=== PATIENT | male | born 1950 | race Caucasian/White ===

== ENCOUNTER 2016-12-09 16:14 | Emergency (ER) | payer OTHER ==
[~2016-12-09] VITALS: Ht 185.4 cm; Wt 108.6 kg
[2016-12-09 16:15] VITALS: Ht 185.4 cm; Wt 108.6 kg
[2016-12-09] MEDS ORDERED: ONDANSETRON INJ 2 MG/ML 2 ML VIAL IV STA (16:27)
[2016-12-09] MEDS ORDERED: ALLO100T PO (16:35)
[2016-12-09] MEDS ORDERED: TAMS0.4C38 PO (16:36)
[2016-12-09] MEDS ORDERED: FINA1TAB36 PO (16:37)
[2016-12-09] MEDS ORDERED: FURO-85 PO (16:38)
[2016-12-09] MEDS ORDERED: ASPI325T39 PO (16:39)
[2016-12-09 16:41] LABS: URINE APPEARANCE CLEAR (CLEAR); URINE BILIRUBIN NEG (NEG); URINE COLOR YELLOW; URINE NITRITE NEG (NEG); URINE PH 6.5 (4.5-7.5); URINE SPECIFIC GRAVITY 1.017 (1.000-1.030); UROBILINOGEN NEG (NEG)
[2016-12-09 16:42] LABS: BASO % 0.2 %; BASO ABS # 0.01 K/uL (0-0.2); COMPLETE YES; EOS % 1.8 %; HEMATOCRIT 43.3 % (42-52); IG% 0.2 %; LYMPH % 36.9 %; MEAN CELL VOLUME 94.5 fL (80-100); MEAN CORPUSCULAR HEMOGLOBIN 31.9 pg (25-34); MEAN CORPUSCULAR HGB CONC 33.7 g/dl (32-36); MEAN PLATELET VOLUME 9.9 fL (7.4-10.4); MONO % 11.1 %; NEUT % 49.8 %; PLATELET COUNT 203 K/uL (130-400); RED BLOOD COUNT 4.58 M/uL (4.7-6.1); WHITE BLOOD COUNT 6.24 K/uL (4.8-10.8)
[2016-12-09 16:45] LABS: MANUAL MICROSCOPIC REQUIRED? NO; REVIEW REQ? NO
[2016-12-09 17:01] LABS: BUN/CREATININE RATIO 14.6 (10-20); CALCIUM 9.1 mg/dl (8.5-10.1); CREATININE 1.2 mg/dl (0.60-1.40); POTASSIUM 4.1 mmol/L (3.5-5.1)
[2016-12-09] MEDS ORDERED: OPTIRAY 320 IV PRN (19:30)
--- NOTE | 2016-12-09 19:39 | DIAGNOSTIC IMAGING REPORT ---
CT OF THE ABDOMEN AND PELVIS WITH CONTRAST CLINICAL HISTORY: Lower abdominal pain. Evaluate for acute diverticulitis. COMPARISON STUDY: None. TECHNIQUE: Following IV administration of 116 mL of Optiray-320, axial images of the abdomen and pelvis were obtained from the lung bases to the proximal femurs. Images were reviewed in the axial, sagittal, and coronal planes. IV contrast was administered without complication. Oral contrast was administered. CT DOSE: 1057.54 mGy.cm FINDINGS: The liver, spleen, adrenal glands, kidneys and pancreas are unremarkable. There is a diverticulum of the second portion of the duodenum. There is no biliary or pancreatic ductal dilatation. The caliber and wall thickness of small and large bowel are normal. The appendix is normal. There is extensive sigmoid diverticulosis without evidence for acute diverticulitis. No pneumatosis, free air or portal venous gas is present. No suspicious skeletal lesions are identified. There is no lymphadenopathy or ascites. IMPRESSION: 1. No acute process within the abdomen or pelvis. 2. Extensive sigmoid diverticulosis without evidence of acute diverticulitis. 3. Normal appendix. No bowel obstruction. Electronically signed by: Vinicio Plascencia M.D. 12/09/2016 7:37 PM Dictated Date/Time: 12/09/2016 7:31 PM
--- NOTE | 2016-12-09 19:47 | EMERGENCY ROOM VISIT NOTE ---
History Report prepared by Santino: Kay Nugent Under the Supervision of: Dr. Juan Pablo Fierro M.D. First contact with patient: 16:19 Chief Complaint: ABDOMINAL PAIN Stated Complaint: ABDOMINAL PAIN- [facility] REFERRED Nursing Triage Summary: Pt c/o mid lower abdominal pain that began was intermittent, now is constant. Denies n/v/d. Denies urinary symptoms. Last BM this am. History of Present Illness The patient is a 66 year old male who presents to the Emergency Room with complaints of constant sharp mid lower abdominal pain beginning 3 days ago. The patient states that he was seen at [facility] and was referred here. He reports that his last bowel movement was this morning and it was normal. He denies any urinary symptoms, hematuria, fever, nausea, vomiting, diarrhea, bloody stool, and black stool. The patient reports that he has no history of abdominal surgeries. Source of History: patient Onset: 3 days ago Position: abdomen (lower central) Quality: sharp Timing: constant Associated Symptoms: No fevers, No nausea, No vomiting, No diarrhea, No urinary symptoms Note: He denies any bloody stool and black stool. Review of Systems See HPI for pertinent positives & negatives. A total of 10 systems reviewed and were otherwise negative. Past Medical & Surgical Medical Problems: (1) Asthma (2) HTN (hypertension) Family History Patient reports no known family medical history. Social History Smoking Status: Never Smoker Smokeless Tobacco Use: No Alcohol Use: occasionally Occupation Status: employed Current/Historical Medications Scheduled Allopurinol (Zyloprim), 1 TAB PO DAILY Aspirin (Aspirin Ec), 650 MG PO DAILY Finasteride (Alopecia) (Finasteride), 1 TAB PO DAILY Furosemide (Lasix), 1 TAB PO DAILY Tamsulosin Hcl (Flomax), 0.4 MG PO QPM Allergies Coded Allergies: Eggs or Egg-derived Products (Verified Allergy, Intermediate, NAUSEA/ RASH , 12/09/16) Shellfish (Verified Allergy, Intermediate, RASH, 12/09/16) Physical Exam Vital Signs Date Time Temp Pulse Resp B/P (MAP) Pulse Ox O2 Delivery O2 Flow Rate FiO2 12/09/16 18:32 59 16 121/86 93 Room Air 12/09/16 16:15 36.7 65 18 129/88 96 Room Air Physical Exam Constitutional: Vital signs reviewed. Eyes: Pupils are equal round reactive to light. Conjunctiva are noninjected. ENT: Pharynx is clear without erythema or exudate. Mucous membranes are moist. Neck supple without meningeal signs. Respiratory: Clear to auscultation bilaterally. Breath sounds are equal bilaterally. Cardiovascular: Regular rate and rhythm. No rubs or gallops. GI: Soft, suprapubic tenderness, no guarding. Bowel sounds are present. Musculoskeletal: No peripheral edema. No lower extremity tenderness. Integumentary: No cyanosis. Neurological: The patient is awake and alert. No focal deficits. Psychiatric: Normal affect. Medical Decision & Procedures ER Provider Diagnostic Interpretation: CT results as stated below per my review and radiologist interpretation. CT OF THE ABDOMEN AND PELVIS WITH CONTRAST TECHNIQUE: Following IV administration of 116 mL of Optiray-320, axial images of the abdomen and pelvis were obtained from the lung bases to the proximal femurs. Images were reviewed in the axial, sagittal, and coronal planes. IV contrast was administered without complication. Oral contrast was administered. CT DOSE: 1057.54 mGy.cm FINDINGS: The liver, spleen, adrenal glands, kidneys and pancreas are unremarkable. There is a diverticulum of the second portion of the duodenum. There is no biliary or pancreatic ductal dilatation. The caliber and wall thickness of small and large bowel are normal. The appendix is normal. There is extensive sigmoid diverticulosis without evidence for acute diverticulitis. No pneumatosis, free air or portal venous gas is present. No suspicious skeletal lesions are identified. There is no lymphadenopathy or ascites. IMPRESSION: 1. No acute process within the abdomen or pelvis. 2. Extensive sigmoid diverticulosis without evidence of acute diverticulitis. 3. Normal appendix. No bowel obstruction. Electronically signed by: Vinicio Plascencia M.D. 12/09/2016 7:37 PM Dictated Date/Time: 12/09/2016 7:31 PM Laboratory Results 12/09/16 16:30 Red Blood Count 4.58, Mean Corpuscular Volume 94.5, Mean Corpuscular Hemoglobin 31.9, Mean Corpuscular Hemoglobin Concent 33.7, Mean Platelet Volume 9.9, Neutrophils (%) (Auto) 49.8, Lymphocytes (%) (Auto) 36.9, Monocytes (%) (Auto) 11.1, Eosinophils (%) (Auto) 1.8, Basophils (%) (Auto) 0.2, Neutrophils # (Auto ) 3.12, Lymphocytes # (Auto) 2.30, Monocytes # (Auto) 0.69, Eosinophils # (Auto ) 0.11, Basophils # (Auto) 0.01 12/09/16 16:30 Test 12/09/16 16:30 12/09/16 16:31 White Blood Count 6.24 K/uL (4.8-10.8) Red Blood Count 4.58 M/uL (4.7-6.1) Hemoglobin 14.6 g/dL (14.0-18.0) Hematocrit 43.3 % (42-52) Mean Corpuscular Volume 94.5 fL (80-100) Mean Corpuscular Hemoglobin 31.9 pg (25-34) Mean Corpuscular Hemoglobin Concent 33.7 g/dl (32-36) Platelet Count 203 K/uL (130-400) Mean Platelet Volume 9.9 fL (7.4-10.4) Neutrophils (%) (Auto) 49.8 % Lymphocytes (%) (Auto) 36.9 % Monocytes (%) (Auto) 11.1 % Eosinophils (%) (Auto) 1.8 % Basophils (%) (Auto) 0.2 % Neutrophils # (Auto) 3.12 K/uL (1.4-6.5) Lymphocytes # (Auto) 2.30 K/uL (1.2-3.4) Monocytes # (Auto) 0.69 K/uL (0.11-0.59) Eosinophils # (Auto) 0.11 K/uL (0-0.5) Basophils # (Auto) 0.01 K/uL (0-0.2) RDW Standard Deviation 43.1 fL (36.4-46.3) RDW Coefficient of Variation 12.6 % (11.5-14.5) Immature Granulocyte % (Auto) 0.2 % Immature Granulocyte # (Auto) 0.01 K/uL (0.00-0.02) Anion Gap 6.0 mmol/L (3-11) Est Creatinine Clear Calc Drug Dose 80.4 ml/min Estimated GFR () 73.6 Estimated GFR (Non- 63.5 BUN/Creatinine Ratio 14.6 (10-20) Calcium Level 9.1 mg/dl (8.5-10.1) Total Bilirubin 0.5 mg/dl (0.2-1) Direct Bilirubin 0.1 mg/dl (0-0.2) Aspartate Amino Transf (AST/SGOT) 31 U/L (15-37) Alanine Aminotransferase (ALT/SGPT) 51 U/L (12-78) Alkaline Phosphatase 53 U/L (45-117) Total Protein 7.4 gm/dl (6.4-8.2) Albumin 3.9 gm/dl (3.4-5.0) Lipase 202 U/L (73-393) Urine Color YELLOW Urine Appearance CLEAR (CLEAR) Urine pH 6.5 (4.5-7.5) Urine Specific [place] 1.017 (1.000-1.030) Urine Protein NEG (NEG) Urine Glucose (UA) NEG (NEG) Urine Ketones NEG (NEG) Urine Occult Blood NEG (NEG) Urine Nitrite NEG (NEG) Urine Bilirubin NEG (NEG) Urine Urobilinogen NEG (NEG) Urine Leukocyte Esterase NEG (NEG) Laboratory results as reviewed by me. Medications Administered Medications (Trade) Dose Ordered Sig/Danyell Route Start Time Stop Time Status Last Admin Dose Admin Ondansetron HCl (Zofran Inj) 4 mg NOW STAT IV 12/09/16 16:27 12/09/16 16:28 DC 12/09/16 16:37 4 MG ED Course 162: The patient was evaluated in room A11. A complete history and physical exam was performed. 1626: Zofran Inj 4mg IV. 1706: I discussed the test results with the patient. He is drinking contrast. 1940: I updated the patient about his test results. He will follow up with his PCP. 1943: Upon reevaluation, the patient appeared to have improvement of his symptoms. I discussed tonight's findings with the patient. He verbalized agreement of the treatment plan. The patient was discharged home. Medical Decision This is a 66-year-old male who presents with lower abdominal pain. Differential diagnosis includes diverticulitis, abscess, perforation, appendicitis, UTI, kidney stone. I did perform a limited focused review of portions of the patient's old chart on the electronic medical record. The patient has had no prior visits. Blood Pressure Screening: Patient was found to have a slightly elevated blood pressure due to circumstances. I do not believe that the patient requires hypertension monitoring. Medication Reconciliation: I attest that I have personally reviewed the patient' s current medication list. I did evaluate the patient as noted above. IV access was established. I did treat patient with Zofran IV. I did order and personally review the patient's urinalysis as described above. I did order and review the patient's blood work as noted in the electronic medical record. There is no elevation of his white blood cell count. I did order a CT of the abdomen and pelvis. I did review the images myself as well as the radiology report as described above. There is no evidence of acute intra-abdominal or pelvic process. He does have diverticulosis without diverticulitis. I did discuss the test results with the patient. I did recommend close follow up with his doctor. He was discharged in good condition and given return instructions as outlined below. Impression Primary Impression: Lower abdominal pain Additional Impression: Diverticulosis Scribe Attestation The scribe's documentation has been prepared under my direct and personally reviewed by me in its entirety. I confirm that the note above accurately reflects all work, treatment, procedures, and medical decision making performed by me. Departure Information Dispostion Home / Self-Care Referrals No Doctor, Assigned (PCP) Forms HOME CARE DOCUMENTATION FORM, IMPORTANT VISIT INFORMATION Patient Instructions ED Abdominal Pain Unkn Cause Male, ED Diverticulosis, My [facility] Additional Instructions You have been examined and treated today on an emergency basis only. This is not a substitute for, or an effort to provide, complete comprehensive medical care. It is impossible to recognize and treat all injuries or illnesses in a single emergency department visit. It is therefore important that you follow up closely with your physician in 48 hours. Call as soon as possible for an appointment. Return for worsening symptoms or if you develop fever, vomiting, rectal bleeding or any other concerning symptoms. Problem Qualifiers Additional Impression: Diverticulosis Diverticulosis site: diverticulosis of large intestine Diverticulosis bleeding: diverticulosis without bleeding Qualified Codes: K57.30 - Diverticulosis of large intestine without perforation or abscess without bleeding
[2016-12-09 19:57] VITALS: BP 136/83; PULSE 59; TEMP 36.7; O2SAT 98
== END 2016-12-09 19:58 | disposition home or self-care (01) ==
LOC: C.EDB 16:15 → C.EDA 19:58
DX: K57.30 Diverticulosis of large intestine without perforation or abscess without bleeding (principal); J45.909 Unspecified asthma, uncomplicated; I10 Essential (primary) hypertension; Z79.899 Other long term (current) drug therapy; Z79.82 Long term (current) use of aspirin